=== PATIENT | male | born 1985 | race Two or more races ===

== ENCOUNTER 2016-09-18 05:28 | Day surgery (SDC) | payer OTHER ==
[2016-09-10 10:20] VITALS: BMI 48.0
[2016-09-18] MEDS ORDERED: PROPOFOL 20 ML ONE ×2 (14:18)
[2016-09-18] MEDS ORDERED: ROCURONIUM BROMIDE 50 MG/5 ML VIAL ONE ×2 (14:18→15:39)
[2016-09-18] MEDS ORDERED: MIDAZOLAM HCL 2 MG/2 ML SINGLE DOSE VIAL ONE (14:18)
[2016-09-18] MEDS ORDERED: LIDOCAINE HCL/PF 2% SDV 5ML VIAL ONE (14:21)
--- NOTE | 2016-09-18 14:37 | HP ---
History & Physical Update - History History: No Change - Physical Physical: No Change - Assessment Assessment: No Change - Plan Plan: No Change
[2016-09-18] MEDS ORDERED: ceFAZolin SODIUM 1 GM VIAL ONE (14:50)
[2016-09-18] MEDS ORDERED: DEXAMETHASONE SOD PHOSPHATE 4 MG/1 ML VIAL ONE (14:50)
[2016-09-18] MEDS ORDERED: KETOROLAC TROMETHAMINE 30 MG/1 ML VIAL ONE (14:50)
[2016-09-18] MEDS ORDERED: PHENYLEPHRINE HCL 10 MG/1 ML SINGLE DOSE VIAL ONE (14:52)
[2016-09-18] MEDS ORDERED: ceFAZolin SODIUM 1 GM VIAL IVPB ONE (14:57)
[2016-09-18] MEDS ORDERED: BUPIVACAINE HCL/PF 0.5% (5MG/ML) 10 ML VIAL IJ ONE (15:10)
[2016-09-18] MEDS ORDERED: DESFLURANE GAS 240 ML BOTTLE IH ONE (16:24)
[2016-09-18] MEDS ORDERED: NEOSTIGMINE METHYLSULFATE 0.5 MG/ML - 10 ML MDV ONE (17:03)
[2016-09-18] MEDS ORDERED: GLYCOPYRROLATE 0.2 MG/1 ML VIAL ONE (17:04)
[2016-09-18] MEDS ORDERED: ONDANSETRON 4 MG/2 ML VIAL IVPUSH PRN (17:43)
[2016-09-18] MEDS ORDERED: LACTATED RINGERS SOLUTION 1,000 ML IV SCH (17:45)
--- NOTE | 2016-09-18 17:58 | OP ---
Operative Note - Note: Operative Date: 09/18/16 Pre-Operative Diagnosis: Ventral hernia x2 Operation: Robotic assisted repair ventral hernia x2 with mesh Post-Operative Diagnosis: Same as Pre-op Surgeon: Cameron Muñoz [employer] Supervisor: Vadim Murray Anesthesiologist/BUILDER BEAM: Marina Jama Anesthesia: General Specimens Removed: hernia sac Estimated Blood Loss (mls): 10 Fluid Volume Replaced (mls): 1,200 Operative Report Dictated: Yes
--- NOTE | 2016-09-18 17:58 | SURG ---
Surgery Paper Reel Operator Note Paper Reel Operator: Vadim Murray PA-C Date of Service: 09/18/16 Diagnosis: Ventral hernia Procedure: Robotic repair ventral hernia x2 with mesh I was present for the entirety of the operative procedure. For further detail, please refer to operative report. Visit type - Case Type Case Type: Scheduled Admission - New patient This patient is new to me today: Yes Date on this admission: 09/18/16
--- NOTE | 2016-09-18 18:00 | OP ---
Operative Note - Note: Operative Date: 09/18/16 Pre-Operative Diagnosis: Ventral hernia Operation: Robotic multiple ventral hernia repair with mesh (2) Findings: multiple ventral hernias - umbilical and epigastric Implants: Progrip mesh 10 x15 cm Post-Operative Diagnosis: Other (Multiple ventral hernias) Surgeon: Cameron Muñoz Co[employer] W[employer] Supervisor: Vadim Murray Anesthesiologist/CRUISE GUIDE: Marina Jama Anesthesia: General Specimens Removed: hernia sac Estimated Blood Loss (mls): 10 Operative Report Dictated: Yes
[2016-09-18] MEDS ORDERED: diphenhydrAMINE HCL 25 MG CAPSULE (FP) PO PRN (18:01)
[2016-09-18] MEDS ORDERED: HYDROmorphone HCL CARPU-JECT 2 MG/1 ML DISP.SYRIN IVPB PRN (18:01)
[2016-09-18] MEDS: ACETAMINOPHEN 1000 MG/100 ML VIAL (NON FORMULARY) IVPB PRN ×2 (18:25→18:50)
[2016-09-18] MEDS ORDERED: ACETAMINOPHEN INJECTION 100 ML IVPB ONE (18:45)
[2016-09-18 19:58] VITALS: TEMP 98.3
[2016-09-18] MEDS ORDERED: PATIENT'S OWN MEDICATION (NON-FORMULARY) (Lisinopril/Hydrochlorothiazide [Lisinopril-Hctz PO SCH (22:00)
[2016-09-19 01:56] VITALS: BP 116/77; PULSE 102
[2016-09-19] MEDS ORDERED: LISINOPRIL 20 MG TABLET (FP) PO SCH (10:00)
[2016-09-19] MEDS ORDERED: HYDROCHLOROTHIAZIDE 12.5 MG CAPSULE (FP) PO SCH (10:00)
[2016-09-19] MEDS ORDERED: ENOXAPARIN NA (PORCINE) 40 MG/0.4 ML DISP.SYRIN SQ SCH (10:00)
--- NOTE | 2016-09-19 17:38 | OP ---
DATE OF OPERATION: 09/18/2016 PROCEDURE: Robotic-assisted laparoscopic multiple ventral hernia repair with mesh. PREOPERATIVE DIAGNOSIS: Epigastric ventral hernia. POSTOPERATIVE DIAGNOSIS: Multiple ventral hernias, epigastric umbilical hernias. SURGEON: Cameron Muñoz MD MEDICAL IMAGING SPECIALIST: ESTEFANIA Call ANESTHESIA: General endotracheal. FINDINGS AND PROCEDURE: This is a 31-year-old male with morbid obesity who presents with bulge of the epigastric region about 2 fingerbreadths above the umbilicus. On physical exam, patient has a nonreducible soft tissue bulge, which is about 8 cm in diameter with just mild tenderness on deep palpation. Patient also has a questionable umbilical defect. Patient was advised elective hernia repair, and consent was obtained after discussing the risks, benefits and alternatives of the procedure. Patient was brought to the operating room and placed in supine position. General endotracheal anesthesia was administered. A small roll was placed on the patient's posterior left flank. The abdomen was prepped and draped in the usual sterile fashion. Using 0.5% Marcaine, local anesthesia was administered to the proposed incision site. The peritoneal cavity was then entered using the Veress needle technique and pneumoperitoneum was established. An 8-mm port was inserted at the left subcostal region in the anterior axillary line level. The 3-D 30-degree laparoscope was inserted, and the peritoneal cavity was carefully inspected and was noted to be free of inadvertent injury. Two large hernias were noted. The epigastric one was about 6 cm in its widest diameter, and the umbilical hernia was noted to be about 3 cm in diameter. Two 8-mm ports were inserted at the flank posterior to the anterior axillary line, one at the level of the umbilicus and one at the left lower quadrant. The target organ was set, and the robotic arms were docked. The fenestrated bipolar forceps were inserted at the left lower quadrant port, and the EndoWrist josefina connected to monopolar cautery was inserted at the left upper quadrant port. The undersigned then scrubbed out to commence the console part of the procedure. Using the EndoWrist josefina, the parietal peritoneum was scored about 5 cm away from the hernia defect. About 15 cm of the preperitoneal space was dissected to create the preperitoneal pocket. The 2 hernia sacs of the epigastric/umbilical hernias were taken down sharply using the EndoWrist josefina. A defect was made of the epigastric hernia sac. This dissection was carried to the other side of the midline about 5 cm away from the hernia defects. After this preperitoneal pocket was created, the hernia defects were closed with continuous V-Loc No. 1 nonabsorbable sutures. The epigastric hernia was closed in transverse fashion, and the umbilical hernia was closed in a vertical fashion. A 15 x 10 cm ProGrip mesh was deployed and anchored to the posterior abdominal wall to reinforce the hernia repair. After the deployment was deemed satisfactory, the preperitoneal pocket was then closed with a continuous V-Loc 2-0 absorbable suture. The hernia sac, which was quite redundant was amputated and extracted via the left upper quadrant port. The peritoneal cavity was again carefully inspected and was noted to be free of active bleeding or any inadvertent injury. The pneumoperitoneum was evacuated. The robotic arms were undocked, and the ports were removed. The wounds were closed with subcuticular Biosyn 4-0 sutures for the skin, reinforced with Dermabond. The patient was successfully extubated. Pressure dressing was placed on the hernia repair area to prevent seroma formation and abdominal binder was also applied. Patient was transferred to the post-anesthesia care unit in satisfactory condition. Estimated blood loss was about 10 mL. Wound class clean. The patient received 2 g of Ancef prior to the start of the procedure. Sanaz [id number] MTDD
--- NOTE | 2016-09-21 13:58 | PATH ---
Surgical Pathology Report Patient Name: ROSA SAMUELS [facility]. Rec. #: [id number] /Age/Gender: 1985 (Age: 31) / M Account: [id number] Location: [facility] SURGICAL Taken: 09/18/2016 Received: 09/19/2016 Reported: 09/21/2016 Physicians: Cameron Muñoz M.D. Specimen(s) Received HERNIA SAC Clinical History Ventral hernia Final Diagnosis SOFT TISSUE, ABDOMINAL WALL, EXCISION: HERNIA SAC, AND ATTACHED BENIGN ADIPOSE TISSUE. Electronically Signed Ha Chandra M.D. Gross Description Received in formalin labeled "hernia sac," is a 5.8 x 3.3 x 1.3 cm portion of brown carlos fibromembranous tissue with attached fat, consistent with a hernia sac. Sectioning reveals focally hemorrhagic soft tissue. No masses are identified. Respiratory Supervisor sections are submitted in one cassette. /09/19/201609/19/2016
== END 2016-09-18 21:34 | disposition home or self-care (01) ==
LOC: JASU-SURG 05:28 → J6S 19:45 → JASU-SURG 21:34
PROVIDERS: ATTEND Surgery
PROC: 8E0W4CZ Robotic Assisted Procedure of Trunk Region, Percutaneous Endoscopic Approach (ICD-10-PCS; 2016-09-18)
PROC: 0WUF4JZ Supplement Abdominal Wall with Synthetic Substitute, Percutaneous Endoscopic Approach (ICD-10-PCS; principal; 2016-09-18 12:30)
DX: K43.9 Ventral hernia without obstruction or gangrene (principal)
CPT/HCPCS: 49652; S2900; 88302-TC; 94010; 94760

== ENCOUNTER 2017-07-01 09:21 | Day surgery (SDC) | payer OTHER ==
[2017-07-01 09:39] VITALS: BMI 47.7
[2017-07-01] MEDS ORDERED: HYDROCHLOROTHIAZIDE 25 MG TABLET (FP) PO ONE (10:17)
[2017-07-01] MEDS ORDERED: LISINOPRIL 20 MG TABLET (FP) PO ONE (10:18)
[2017-07-01] MEDS ORDERED: SODIUM CHLORIDE 1,000 ML IV STA (10:21)
[2017-07-01] MEDS ORDERED: SODIUM CHLORIDE 1,000 ML IV SCH (10:30)
[2017-07-01] MEDS ORDERED: LISINOPRIL 20 MG TABLET (FP) ONE (10:35)
[2017-07-01] MEDS ORDERED: HYDROCHLOROTHIAZIDE 25 MG TABLET (FP) ONE (10:35)
--- NOTE | 2017-07-01 10:44 | PDOC ---
History of Present Illness - General Chief Complaint: Pain, Acute Stated Complaint: PCP SENT Time Seen by Provider: 07/01/17 09:54 History Source: Patient - History of Present Illness Initial Comments: 07/01/17 10:42 32< with pmh of HTN presents to the ED with 1.5 week history of left flank pressure. He states that he saw some blood in the urine when the symptoms started. He saw Dr. Allen, his father's urologist on the May and go a CT of his abdomen which showed a 7x6mm calculus in the left UVJ with mild to moderate hydronephrosis. I spoke to Dr. Allen who said the patient will receive lithotripsy + Stent today. Patient denies nausea, vomiting and anorexia. Past History - Past Medical History Allergies/Adverse Reactions: Allergies Allergy/AdvReac Type Severity Reaction Status Date / Time strawberry Allergy Intermediate Hives Verified 07/01/17 09:39 Sulfa (Sulfonamide Allergy Intermediate Rash Verified 07/01/17 09:39 Antibiotics) Home Medications: Ambulatory Orders Lisinopril/Hydrochlorothiazide [Lisinopril-Hctz 20-12.5 mg Tab] 1 each PO HS Anemia: No Asthma: Yes Cancer: No Cardiac Disorders: No CVA: No COPD: No CHF: No Dementia: No Diabetes: No GI Disorders: No Disorders: No HTN: Yes Hypercholesterolemia: No Kidney Stones: Yes Liver Disease: No Seizures: No Thyroid Disease: No - Surgical History Abdominal Surgery: Yes (UMBILICAL HERNIA REPAIR) Orthopedic Surgery: Yes (FOOT SX) - Suicide/Smoking/Psychosocial Hx Smoking History: Never smoked Hx Alcohol Use: No Drug/Substance Use Hx: No Substance Use Type: None Hx Substance Use Treatment: No Review of Systems - Review of Systems Able to Perform ROS?: Yes Constitutional: No: Symptoms Reported HEENTM: No: Symptoms Reported Respiratory: No: Symptoms reported Cardiac (ROS): No: Symptoms Reported ABD/GI: No: Symptoms Reported : Yes: See HPI Musculoskeletal: No: Symptoms Reported Integumentary: No: Symptoms Reported Neurological: No: Symptoms reported *Physical Exam - Vital Signs Last Vital Signs Temp Pulse Resp BP Pulse Ox 98.7 F 102 H 18 176/118 97 07/01/17 09:36 07/01/17 09:36 07/01/17 09:36 07/01/17 09:36 07/01/17 09:36 - Physical Exam General Appearance: Yes: Appropriately Dressed, Obese. No: Apparent Distress HEENT: positive: EOMI, HALI, Normal ENT Inspection Respiratory/Chest: positive: Lungs Clear, Normal Breath Sounds. negative: Chest Tender Cardiovascular: positive: Regular Rhythm, S1, S2, Tachycardia Gastrointestinal/Abdominal: positive: Normal Bowel Sounds, Flat, Soft. negative : Tender Musculoskeletal: negative: CVA Tenderness Extremity: positive: Normal Capillary Refill Integumentary: positive: Normal Color Neurologic: positive: Fully Oriented, Alert, Normal Mood/Affect, Normal Response Medical Decision Making - Medical Decision Making 07/01/17 11:08 Basic presurgery labs ordered, ua, ucx, Iv placement. *DC/Admit/Observation/Transfer Diagnosis at time of Disposition: Left nephrolithiasis - Discharge Dispostion Admit: Yes - Referrals Referrals: Alanna Monroe MD [Primary Care Provider] - - Patient Instructions - Post Discharge Activity
[2017-07-01 11:17] LABS: EOS % 0.3 % (0-4.5); HEMATOCRIT 48.3 % (35.4-49); HEMOGLOBIN 15.9 GM/dL (11.7-16.9); LYMPH % 11.7 % (8-40); MCH 30.6 pg (25.7-33.7); MCHC 32.8 g/dl (32.0-35.9); MEAN CELL VOLUME 93.1 fl (80-96); MEAN PLT VOLUME 8.7 fl (7.5-11.1); PLATELET COUNT 231 K/MM3 (134-434); RBC 5.19 M/mm3 (4.00-5.60); RDW 13.2 % (11.9-15.9); WHITE BLOOD COUNT 15.4 K/mm3 (4.0-10.0)
--- NOTE | 2017-07-01 11:19 | PDOC ---
Attending Attestation - Resident Resident Name: Sarbjit Freedman - ED Attending Attestation I have performed the following: I have examined & evaluated the patient, The case was reviewed & discussed with the resident, I agree w/resident's findings & plan, Exceptions are as noted - HPI HPI: 07/01/17 11:18 " The patient is a 32 year old male, with a significant past medical history of hypertension, who presents to the emergency department with 1.5 weeks of left flank pain, hematuria, and mild discomfort on urination. He states he went to his urologist, Dr. Gonzalez where the patient had a CT positive for a 7.6mm stone in the left ureter. Pt was to have surgical intervention, but due to insurance issues, pt could not have arrange this as outpt. The patient states advised the patient to come to the ED for admission. The patient denies chest pain, shortness of breath, headache and dizziness. The patient denies fever, chills, nausea, vomit, diarrhea and constipation. The patient denies frequency, urgency. Allergies: NKDA Urologist: Dr. Gonzalez ([phone]) " - Physicial Exam PE: 07/01/17 11:19 """GENERAL: Awake, alert, and fully oriented, in no acute distress HEAD: No signs of trauma EYES: PERRLA, EOMI, sclera anicteric, conjunctiva clear ENT: Auricles normal inspection, hearing grossly normal, nares patent, oropharynx clear without exudates. Moist mucosa NECK: Nontender, no stepoffs, Normal ROM, supple, no lymphadenopathy, JVD, or masses LUNGS: Breath sounds equal, clear to auscultation bilaterally. No wheezes, and no crackles HEART: Regular rate and rhythm, normal S1 and S2, no murmurs, rubs or gallops ABDOMEN: Soft, nontender, normoactive bowel sounds. No guarding, no rebound. No masses EXTREMITIES: Normal range of motion, no edema. No clubbing or cyanosis. No cords, erythema, or tenderness NEUROLOGICAL: Cranial nerves II through XII intact. 5/5 strength and sensation in all extremities, Normal speech, normal gait SKIN: Warm, Dry, normal turgor, no rashes or lesions noted. """ - Medical Decision Making 07/01/17 11:19 32 M with L ureteral stone, sent in for admission for procedure, likely stenting. - Labs, UA, UCx - Pain control, IVF - Consult uro - Admit
[2017-07-01 11:20] LABS: URINE APPEARANCE CLEAR; URINE BILIRUBIN NEGATIVE (NEGATIVE); URINE BLOOD NEGATIVE (NEGATIVE); URINE COLOR LTYELLOW; URINE GLUCOSE (UA) NEGATIVE (NEGATIVE); URINE KETONE NEGATIVE (NEGATIVE); URINE NITRITE NEGATIVE (NEGATIVE); URINE PROTEIN NEGATIVE (NEGATIVE); URINE UROBILINOGEN NEGATIVE mg/dL (0.2-1.0)
[2017-07-01 11:27] LABS: URINE LEUK ESTERASE 1+ (NEGATIVE)
[2017-07-01 11:28] LABS: EPI CELLS RARE /HPF (FEW)
[2017-07-01 11:31] LABS: INR 1.23 (0.82-1.09); PROTHROMBIN TIME (PATIENT) 13.9 SEC (9.98-11.88)
[2017-07-01 11:34] LABS: ACTIVATED PTT 32.5 SECONDS (26.9-34.4)
[2017-07-01 11:39] LABS: ALBUMIN 4.3 g/dl (3.4-5.0); ANION GAP 6 (8-16); BLOOD UREA NITROGEN 9 mg/dL (7-18); CHLORIDE 102 mmol/L (98-107); CO2 28 mmol/L (21-32); GLUCOSE,RANDOM 93 mg/dL (74-106); POTASSIUM 3.9 mmol/L (3.5-5.1); SODIUM 136 mmol/L (136-145)
[2017-07-01 11:42] LABS: ALK PHOS 62 U/L (45-117); CREATININE 1.2 mg/dL (0.7-1.3); SGOT/AST 14 U/L (15-37); SGPT/ALT 27 U/L (12-78); TOT PROT 8.2 g/dl (6.4-8.2)
[2017-07-01] MEDS ORDERED: IOHEXOL 300 MG/ML INFUS..BTL IV ONE (13:58)
[2017-07-01] MEDS ORDERED: ACETAMINOPHEN INJECTION 100 ML IVPB ONE (14:50)
[2017-07-01] MEDS ORDERED: ACETAMINOPHEN 1000 MG/100 ML VIAL (NON FORMULARY) IVPB ONE ×3 (15:15→20:00)
--- NOTE | 2017-07-01 16:31 | PN ---
Teaching Attending Note Name of Resident: Malena Hendrickson ATTENDING PHYSICIAN STATEMENT I saw and evaluated the patient. I reviewed the resident's note and discussed the case with the resident. I agree with the resident's findings and plan as documented. SUBJECTIVE: OBJECTIVE: Vital Signs Period Temp Pulse Resp BP Sys/De [place] Cruz Pulse Ox Last 24 Hr 98.7 F-101.1 F 98-120 18-20 89-176/60-118 96-99 Laboratory Tests 07/01/17 07/01/17 07/01/17 11:10 11:10 11:10 WBC 15.4 H RBC 5.19 Hgb 15.9 Hct 48.3 MCV 93.1 MCH 30.6 MCHC 32.8 RDW 13.2 Plt Count 231 MPV 8.7 Neutrophils % 81.0 Lymphocytes % 11.7 Monocytes % 6.0 Eosinophils % 0.3 Basophils % 1.0 PT with INR 13.90 H INR 1.23 H PTT (Actin FS) 32.5 Sodium 136 Potassium 3.9 Chloride 102 Carbon Dioxide 28 Anion Gap 6 L BUN 9 Creatinine 1.2 Creat Clearance w eGFR > 60 Random Glucose 93 Calcium 9.0 Total Bilirubin 1.0 AST 14 L ALT 27 Alkaline Phosphatase 62 Total Protein 8.2 Albumin 4.3 Urine Color Urine Appearance Urine pH Ur Specific [place] Urine Protein Urine Glucose (UA) Urine Ketones Urine Blood Urine Nitrite Urine Bilirubin Urine Urobilinogen Ur Leukocyte Esterase Urine WBC (Auto) Urine RBC (Auto) Ur Epithelial Cells Blood Type Antibody Screen 07/01/17 07/01/17 11:10 11:10 WBC RBC Hgb Hct MCV MCH MCHC RDW Plt Count MPV Neutrophils % Lymphocytes % Monocytes % Eosinophils % Basophils % PT with INR INR PTT (Actin FS) Sodium Potassium Chloride Carbon Dioxide Anion Gap BUN Creatinine Creat Clearance w eGFR Random Glucose Calcium Total Bilirubin AST ALT Alkaline Phosphatase Total Protein Albumin Urine Color Ltyellow Urine Appearance Clear Urine pH 8.0 Ur Specific [place] 1.014 Urine Protein Negative Urine Glucose (UA) Negative Urine Ketones Negative Urine Blood Negative Urine Nitrite Negative Urine Bilirubin Negative Urine Urobilinogen Negative Ur Leukocyte Esterase 1+ H Urine WBC (Auto) 59 Urine RBC (Auto) 3 Ur Epithelial Cells Rare Blood Type A POSITIVE Antibody Screen Negative Home Medications Medication Instructions Recorded Lisinopril/Hydrochlorothiazide 1 each PO HS 09/10/16 [Lisinopril-Hctz 20-12.5 mg Tab] ASSESSMENT AND PLAN:
[2017-07-01] MEDS ORDERED: CEFTRIAXONE 1 G/50 ML PREMIX 50 ML IVPB ONE ×2 (17:30→18:30)
[2017-07-01 18:08] VITALS: BP 109/66; PULSE 88
--- NOTE | 2017-07-01 20:05 | OP ---
DATE OF OPERATION: 07/01/2017 PREOPERATIVE DIAGNOSIS: Left ureteral stone. POSTOPERATIVE DIAGNOSIS: Left ureteral stone. PROCEDURE: Cystoscopy, left retrograde pyelogram, left ureteroscopic laser lithotripsy, left ureteral stone basketing, and left ureteral stent placement. ATTENDING: Krunal Kimbrough MD ANESTHESIA: General. INDICATION FOR PROCEDURE: The patient presented to the emergency room in significant distress. The patient has a history of high-grade hydroureteronephrosis. This hydroureteronephrosis secondary to an 8-mm stone on CAT scan. The patient is taken emergently to the operating room in order to avoid loss of renal function in the left kidney. The patient understands all risks and benefits. DESCRIPTION OF PROCEDURE: The patient was brought in the operating room, placed in supine position on the operating table. General anesthesia and preoperative antibiotics were administered. At this point, the patient was placed in a dorsal lithotomy position. Cystoscopy was performed, and there was no evidence of stone within the bladder. Left ureteral orifice appears to be inflamed and irregular. The right ureteral orifice is normal. A retrograde pyelogram showed evidence of a distal left ureteral stone. There was difficulty in passing the wire proximally into the left kidney. With [id number] difficulty, the left wire was placed. Ureteroscopy was then performed, and an 8+ mm stone was noted at the distal ureter. Laser lithotripsy was performed. A holmium laser was utilized. All stone fragments were basketed. The retrograde pyelogram was remarkable for grade 4/5 hydronephrosis. A 6-Irish 24-cm stent was then placed utilizing the Seldinger technique. No complications were noted. The patient tolerated the procedure very well. KRUNAL KIMBROUGH M.D. [id number]
[2017-07-01 22:03] VITALS: TEMP 98.2
--- NOTE | 2017-07-02 12:55 | DS ---
Physical Exam: SUBJECTIVE: Patient seen and examined. He is complaining of mild discomfort in lower back. OBJECTIVE: Vital Signs Period Temp Pulse Resp BP Sys/De La Cruz Pulse Ox Last 24 Hr 98.2 F-101.1 F 88-120 16-20 89-120/48-91 95-99 PHYSICAL EXAM GENERAL: The patient is awake, alert, and fully oriented, in no acute distress. HEAD: Normal with no signs of trauma. EYES: PERRL, extraocular movements intact, sclera anicteric, conjunctiva clear. ENT: Ears normal, nares patent, oropharynx clear without exudates, moist mucous membranes. NECK: Trachea midline, full range of motion, supple. LUNGS: Breath sounds equal, clear to auscultation bilaterally, no wheezes, no crackles, no accessory muscle use. HEART: Regular rate and rhythm, S1, S2 without murmur, rub or gallop. ABDOMEN: Obese, soft, nontender, nondistended, normoactive bowel sounds, no guarding, no rebound, no hepatosplenomegaly, no masses. EXTREMITIES: 2+ pulses, warm, well-perfused, no edema. NEUROLOGICAL: Cranial nerves II through XII grossly intact. Normal speech, gait not observed. PSYCH: Normal mood, normal affect. SKIN: Warm, dry, normal turgor, no rashes or lesions noted. LABS HOSPITAL COURSE: Date of Admission:07/01/17 Date of Discharge: 07/01/17 Minutes to complete discharge: 30 Discharge Summary Reason For Visit: CALCULUS OF LEFT KIDNEY Hospital Course: The patient is a 32 year old male with a PMH of hypertension, nephrolithiasis presented today referred from Dr RosasWu-[id number] office. He has been complaining of left flank pain for over a week that prompted him to visit his Urologist. He referred him for CT abdomen that visualized 7-6 mm partially obstructing calculus in left UVJ with moderate hydronephrosis (06/17/17). The pain is intermittent, 0-5/10, radiating from left side flank to left side of the abdomen, relieved by drinking lots of fluids. When his symptoms started he noticed hematuria that resolved now. He denies urgency, increased frequency, dysuria. The patient was aware of kidney stones in the past and was followed by his PCP. He didn't take any pain medications at home. The pt denies fever, chills, nausea, vomiting, diarrhea, loss of appetite. Hospital course: The pt was taken to the operating room for cystoscopy/left retrograde pyelogram/left ureteroscopic laser lithotripsy/left ureteral stone basketing/left ureteral stent placement. He had uncomplicated post op course and was discharged home with recommendation to follow up with PCP and Dr. Rosas. Condition: Good - Instructions Diet, Activity, Other Instructions: Increase fluids tylenol/advil/motrin for pain follow-up in one week Referrals: Serg Rosas MD [Staff Physician] - Disposition: HOME - Home Medications Comprehensive Discharge Medication List: Ambulatory Orders Lisinopril/Hydrochlorothiazide [Lisinopril-Hctz 20-12.5 mg Tab] 1 each PO HS Problem List - Problems (1) Left nephrolithiasis Code(s): N20.0 - CALCULUS OF KIDNEY This patient is new to me today: Yes Date on this admission: 07/02/17 Emergency Visit: Yes Care time: The patient presented to the Emergency Department on the above date and was hospitalized for further evaluation of their emergent condition. Critical Care patient: No - Discharge Referral Referred to [facility] No
--- NOTE | 2017-07-03 13:05 | PATH ---
Surgical Pathology Report Patient Name: ROSA SAMUELS [facility]. Rec. #: [id number] /Age/Gender: 1985 (Age: 32) / M Account: [id number] Location: AMBULATORY SURG Taken: 07/01/2017 Received: 07/02/2017 Reported: 07/03/2017 Physicians: Serg Webber M.D. Specimen(s) Received LEFT KIDNEY STONES Clinical History Calculus of left kidney Final Diagnosis STONES, KIDNEY, LEFT, LITHOTRIPSY:RENAL CALCULI. MACROSCOPIC DIAGNOSIS. Electronically Signed Magdalena Moore M.D. Gross Description Received fresh labeled "left kidney stones" are 2 calculi each of which is between 0.2 and 0.4 cm in greatest dimension. The specimen is submitted for chemical analysis. This is for gross dictation only. [facility]/07/02/2017 [facility]/07/02/2017
[2017-07-16 14:14] LABS: CA OXALATE MONOHYDR. 65 % (.); CALCIUM PHOSPHATE 20 % (.); WEIGHT 35.7 mg (.)
== END 2017-07-01 22:03 | disposition home or self-care (01) ==
LOC: JER 09:21 → JASUSAT 11:22 → J8W 18:15 → JASUSAT 22:03
PROVIDERS: ATTEND Internal Medicine
PROC: 0TF78ZZ Fragmentation in Left Ureter, Via Natural or Artificial Opening Endoscopic (ICD-10-PCS; principal; 2017-07-01 13:00)
PROC: 0T778DZ Dilation of Left Ureter with Intraluminal Device, Via Natural or Artificial Opening Endoscopic (ICD-10-PCS; 2017-07-01 13:00)
DX: N20.1 Calculus of ureter (principal)
CPT/HCPCS: 36415; 76000-TC-FY; 80053; 81003; 81015; 82360; 85025; 85610; 85730; 86850; 86900; 86901; 87040; 87077; 87086; 88300-TC; 94760; 99282-25; J0131; J7030

== ENCOUNTER 2017-10-21 10:14 | Day surgery (SDC) | payer OTHER ==
[2017-10-18 13:30] VITALS: BMI 49.2
--- NOTE | 2017-10-21 14:15 | OP ---
Operative Note - Note: Operative Date: 10/21/17 Pre-Operative Diagnosis: Right renal stone disease Operation: Right ESWL Post-Operative Diagnosis: Same as Pre-op Surgeon: Serg Rosas Anesthesia: Fractional
[2017-10-21 14:19] VITALS: TEMP 98.4
[2017-10-21 15:35] VITALS: BP 125/71; PULSE 81
--- NOTE | 2017-10-21 19:47 | OP ---
DATE OF OPERATION: 10/21/2017 PREOPERATIVE DIAGNOSIS: Right renal stone. POSTOPERATIVE DIAGNOSIS: Right renal stone. PROCEDURE: Right extracorporeal shock wave lithotripsy. ATTENDING: Krunal Kimbrough MD ANESTHESIA: Fractional. DESCRIPTION OF OPERATION: Patient brought in the operating room, placed in a supine position on the operating room table. Ultrasonography and fluoroscopy were performed. A 7-mm right upper pole kidney stone was identified under ultrasonography and fluoroscopy. The patient was then given fractional anesthesia and preoperative antibiotics. Extracorporeal shock wave lithotripsy was then performed; 2500 impulses at 18 joules of power were administered to the stone with excellent fragmentation noted under real-time ultrasonography and fluoroscopy. No complications were noted. The disposition of the patient was to the recovery room. KRUNAL KIMBROUGH M.D. [id number]
== END 2017-10-21 15:20 | disposition home or self-care (01) ==
LOC: JASU-SURG 10:14
PROVIDERS: ATTEND Urology
PROC: 0TF3XZZ Fragmentation in Right Kidney Pelvis, External Approach (ICD-10-PCS; principal; 2017-10-21 12:30)
DX: N20.0 Calculus of kidney (principal)
CPT/HCPCS: 94760

== ENCOUNTER 2018-05-06 16:21 | Emergency (ER) | payer OTHER ==
[2018-05-06 16:37] VITALS: BP 170/85; PULSE 104; TEMP 98; BMI 52.2
--- NOTE | 2018-05-06 16:39 | PDOC ---
Rapid Medical Evaluation Chief Complaint: Bite Medical Evaluation: Allergies Allergy/AdvReac Type Severity Reaction Status Date / Time strawberry Allergy Intermediate Hives Verified 05/06/18 16:35 Sulfa (Sulfonamide Allergy Intermediate Rash Verified 05/06/18 16:35 Antibiotics) 05/06/18 16:37 I have performed a brief in-person evaluation of this patient. The patient presents with a chief complaint of:dog bite to left thigh=- unknown dog, Pertinent physical exam findings: 2 cm open wound to distal left thigh. I have ordered the following: nothing The patient will proceed to the ED for further evaluation. Discharge Disposition - Referrals Referrals: Alanna Monroe MD [Primary Care Provider] - - Patient Instructions - Post Discharge Activity
--- NOTE | 2018-05-06 17:27 | PDOC ---
History of Present Illness - General Chief Complaint: Bite Stated Complaint: BITE Time Seen by Provider: 05/06/18 16:39 History Source: Patient Exam Limitations: No Limitations - History of Present Illness Initial Comments: 05/06/18 20:02 Patient is a 33-year-old male who presents to the emergency department for an dog bite to his left upper leg. Patient states he was walking home from the dentist office when a dog running by him in the opposite direction with his own or bit his leg. He did not notice that he had been bitten until he got home. He does not remember if there was a hole through his jeans. Denies fevers, chills, numbness and tingling to the extremity, weakness to the extremity. He does not know the operations research scientist of the dog or the dog that bit him. He is unsure how to get in contact with the owners as the dog was just passing by. Past History - Travel Traveled outside of the country in the last 30 days: No Close contact w/someone who was outside of country & ill: No - Past Medical History Allergies/Adverse Reactions: Allergies Allergy/AdvReac Type Severity Reaction Status Date / Time strawberry Allergy Intermediate Hives Verified 05/06/18 16:35 Sulfa (Sulfonamide Allergy Intermediate Rash Verified 05/06/18 16:35 Antibiotics) Home Medications: Ambulatory Orders Lisinopril/Hydrochlorothiazide [Lisinopril-Hctz 20-12.5 mg Tab] 1 each PO HS Loratadine [Claritin] 10 mg PO DAILY 10/18/17 Amox-Tr/K Cl [Augmentin - 875Mg Tablet] 1 tab PO BID #14 tablet 05/06/18 Anemia: No Asthma: Yes (allergic) Cancer: No Cardiac Disorders: No CVA: No COPD: No CHF: No Dementia: No Diabetes: No GI Disorders: No Disorders: No HTN: Yes Hypercholesterolemia: No Kidney Stones: Yes Liver Disease: No Seizures: No Thyroid Disease: No - Surgical History Abdominal Surgery: Yes (UMBILICAL HERNIA REPAIR) Orthopedic Surgery: Yes (FOOT SX) - Immunization History Immunization Up to Date: Yes - Suicide/Smoking/Psychosocial Hx Smoking History: Never smoked Hx Alcohol Use: Yes (rarely) Drug/Substance Use Hx: No Substance Use Type: None Hx Substance Use Treatment: No Review of Systems - Review of Systems Able to Perform ROS?: Yes Is the patient limited Chilean proficient: No Constitutional: No: Chills, Fever, Weakness Integumentary: Yes: Bruising, Erythema, Other (dog bite to L upper leg) Neurological: No: Numbness, Tingling, Weakness All Other Systems: Reviewed and Negative *Physical Exam - Vital Signs Last Vital Signs Temp Pulse Resp BP Pulse Ox 98.0 F 104 H 18 170/85 97 05/06/18 16:35 05/06/18 16:35 05/06/18 16:35 05/06/18 16:35 05/06/18 16:35 - Physical Exam General Appearance: Yes: Nourished, Appropriately Dressed. No: Apparent Distress Integumentary: positive: Dry, Warm, Erythema, Bruising, Other (abrasion to the L upper thigh measuring approximately 1 cm) Moderate Sedation - Procedure Monitoring Vital Signs: Procedure Monitoring Vital Signs Temperature 98.0 F 05/06/18 16:35 Pulse Rate 104 H 05/06/18 16:35 Respiratory Rate 18 05/06/18 16:35 Blood Pressure 170/85 05/06/18 16:35 O2 Sat by Pulse Oximetry (%) 97 05/06/18 16:35 Medical Decision Making - Medical Decision Making 05/06/18 20:04 Patient is a 33-year-old male who presents to the emergency department for dog bite to his left upper leg which occurred this morning while walking home from the dentist. -The dog was apparently a pet however the patient has no relation to the dog and is unable to track it. -On exam patient with an abrasion measuring 1 cm to the left upper leg. No active bleeding. -Patient reports his tetanus is up-to-date. -Explained to patient that the wound does not appear to be a clear-cut bite, that he could wait for rabies vaccinations. Patient states that he would prefer to receive rabies vaccinations at this time as he is very nervous that he will not be able to find the dog. -Rabies vaccine administered today. -Given patient's weight, there was not enough immunoglobulin in stock in the hospital. Spoke with Dr. Almeida at the health [facility]. She states that you can wait up to 10 days to administer the immunoglobulin. Informed patient to return on the for his next rabies vaccination and immunoglobulin. -Spoke with pharmacy they state they will have the immunoglobulin by Saturday. -Wound was cleaned with copious amounts of normal saline. -Patient placed on Augmentin to prevent infection. -Discharge home -I discussed the physical exam findings, ancillary test results and final diagnoses with the patient. I answered all of the patient's questions. The patient was satisfied with the care received and felt comfortable with the discharge plan and treatment plan. The Patient agrees to follow up with the primary care physician/specialist within 24-72 hours. Return precautions were given. *DC/Admit/Observation/Transfer Diagnosis at time of Disposition: Dog bite Qualifiers: Encounter type: initial encounter Qualified Code(s): W54.0XXA - Bitten by dog, initial encounter - Discharge Dispostion Disposition: HOME Condition at time of disposition: Stable Decision to Admit order: No - Prescriptions Prescriptions: Amox-Tr/K Cl [Augmentin - 875Mg Tablet] 1 tab PO BID #14 tablet - Referrals Referrals: Alanna Monroe MD [Primary Care Provider] - - Patient Instructions Printed Discharge Instructions: DI for Animal Bites Additional Instructions: You were bit by a dog Please follow the rabies vaccination schedule as written in the discharge instructions Please return tomorrow for the immunoglobulin Keep the area clean and dry You may put a thin layer of bacitracin once a day Return to the ED sooner if you see signs of infection including fevers, redness around the site, or purulent drainage. - Post Discharge Activity Forms/Work/School Notes: Rabies Vaccination F/U Veto.
[2018-05-06] MEDS ORDERED: RABIES VACCINE (PCEC)/PF 2.5 UNIT/VIAL IM ONE ×2 (17:28→17:32)
[2018-05-06] MEDS ORDERED: RABIES IMMUNE GLOBULIN 300 UNITS/1 ML VIAL IM ONE (17:28)
[2018-05-06] MEDS ORDERED: DIPHTH,PERTUSS(ACELL),TET 0.5 ML DISP.SYRIN IM ONE (17:43)
== END 2018-05-06 19:42 | disposition home or self-care (01) ==
LOC: JERFT 16:21
PROC: 3E0234Z Introduction of Serum, Toxoid and Vaccine into Muscle, Percutaneous Approach (ICD-10-PCS; principal; 2018-05-06)
DX: S71.152A Open bite, left thigh, initial encounter (principal); W54.0XXA Bitten by dog, initial encounter; Y93.01 Activity, walking, marching and hiking; Y92.480 Sidewalk as the place of occurrence of the external cause; Y99.8 Other external cause status
CPT/HCPCS: 90675; 99281-25

== ENCOUNTER 2018-05-09 12:08 | Emergency (ER) | payer OTHER ==
[2018-05-09 12:18] VITALS: BP 150/80; PULSE 90; TEMP 98.7; BMI 52.2
[2018-05-09] MEDS ORDERED: RABIES IMMUNE GLOBULIN 300 UNITS/1 ML VIAL IM ONE (13:04)
[2018-05-09] MEDS ORDERED: RABIES VACCINE (PCEC)/PF 2.5 UNIT/VIAL IM ONE ×2 (13:04→14:21)
--- NOTE | 2018-05-09 13:06 | PDOC ---
History of Present Illness - General Chief Complaint: Revisit,Rabies Injection Stated Complaint: REVISIT, BITE Time Seen by Provider: 05/09/18 12:30 History Source: Patient Exam Limitations: No Limitations - History of Present Illness Timing/Duration: 24 hours, other (patient came to ER 3 days ago after exposure to an unknown dog that was being walked by director agency [employer] strategic partnerships on a leash. States walk by the dog which jumped out and nipped him in the left lower thigh. States had skin broken and he bled at the time. Came here that day for evaluation and treatment. However our hospital did not have enough of immunoglobulin to provide him with immunity at that time and requested him to return today for proper prophylaxis. Patient denies pain, swelling her any other problems.) Severity: mild Past History - Travel Traveled outside of the country in the last 30 days: No Close contact w/someone who was outside of country & ill: No - Past Medical History Allergies/Adverse Reactions: Allergies Allergy/AdvReac Type Severity Reaction Status Date / Time strawberry Allergy Intermediate Hives Verified 05/06/18 16:35 Sulfa (Sulfonamide Allergy Intermediate Rash Verified 05/06/18 16:35 Antibiotics) Home Medications: Ambulatory Orders Lisinopril/Hydrochlorothiazide [Lisinopril-Hctz 20-12.5 mg Tab] 1 each PO HS Loratadine [Claritin] 10 mg PO DAILY 10/18/17 Amox-Tr/K Cl [Augmentin - 875Mg Tablet] 1 tab PO BID #14 tablet 05/06/18 Anemia: No Asthma: Yes (allergic) Cancer: No Cardiac Disorders: No CVA: No COPD: No CHF: No Dementia: No Diabetes: No GI Disorders: No Disorders: No HTN: Yes Hypercholesterolemia: No Kidney Stones: Yes Liver Disease: No Seizures: No Thyroid Disease: No - Surgical History Abdominal Surgery: Yes (UMBILICAL HERNIA REPAIR) Orthopedic Surgery: Yes (FOOT SX) - Immunization History Immunization Up to Date: Yes - Suicide/Smoking/Psychosocial Hx Smoking History: Never smoked Information on smoking cessation initiated: No Hx Alcohol Use: No Drug/Substance Use Hx: No Substance Use Type: None Hx Substance Use Treatment: No Review of Systems - Review of Systems Able to Perform ROS?: Yes Is the patient limited Latvian proficient: Yes Constitutional: Yes: See HPI. No: Symptoms Reported, Fever, Malaise HEENTM: Yes: See HPI. No: Symptoms Reported Respiratory: Yes: Symptoms reported Musculoskeletal: Yes: Symptoms Reported, Muscle Pain Integumentary: Yes: See HPI. No: Symptoms Reported All Other Systems: Reviewed and Negative *Physical Exam - Vital Signs Last Vital Signs Temp Pulse Resp BP Pulse Ox 98.7 F 90 20 150/80 99 05/09/18 12:15 05/09/18 12:15 05/09/18 12:15 05/09/18 12:15 05/09/18 12:15 - Physical Exam General Appearance: Yes: Nourished, Appropriately Dressed. No: Apparent Distress, Mild Distress HEENT: positive: HALI, TMs Normal, Pharynx Normal Neck: positive: Supple. negative: Tender Musculoskeletal: positive: Other. negative: Normal Inspection Extremity: positive: Normal Capillary Refill Integumentary: positive: Normal Color, Other (well-healed abrasion/dog bite to left distal thigh above patella. Has full range of motion leg, is mildly tender at site but no erythema, purulent drainage, or fluctuance.) Neurologic: positive: application support administrator II-XII NML intact, Fully Oriented, Alert, Normal Mood/ Affect, Normal Response, Motor Strength 5/5 Moderate Sedation - Procedure Monitoring Vital Signs: Procedure Monitoring Vital Signs Temperature 98.7 F 05/09/18 12:15 Pulse Rate 90 05/09/18 12:15 Respiratory Rate 20 05/09/18 12:15 Blood Pressure 150/80 05/09/18 12:15 O2 Sat by Pulse Oximetry (%) 99 05/09/18 12:15 Medical Decision Making - Medical Decision Making 05/09/18 14:48 given for4.9 cc of immunoglobulin infiltrating wound to left thigh, and remaining 4.9 mL given IM. Reaction after 30 minutes. Patient understands new regime as needed vaccine with immunoglobulin therefore today's date will start a 0 and will return in 3, 7, 14 days from now. *DC/Admit/Observation/Transfer Diagnosis at time of Disposition: Rabies, need for prophylactic vaccination against - Discharge Dispostion Disposition: HOME Condition at time of disposition: Stable Decision to Admit order: No - Referrals - Patient Instructions Printed Discharge Instructions: DI for Rabies Vaccine Additional Instructions: Return May 12, for 2nd Vaccine - Post Discharge Activity
== END 2018-05-09 14:49 | disposition home or self-care (01) ==
LOC: JERFT 12:08
PROC: 3E0234Z Introduction of Serum, Toxoid and Vaccine into Muscle, Percutaneous Approach (ICD-10-PCS; principal; 2018-05-09)
PROC: 3E0234Z Introduction of Serum, Toxoid and Vaccine into Muscle, Percutaneous Approach (ICD-10-PCS; 2018-05-09)
DX: Z20.3 Contact with and (suspected) exposure to rabies (principal)
CPT/HCPCS: 90375; 90675; 99281-25

== ENCOUNTER 2018-05-12 10:04 | Emergency (ER) | payer OTHER ==
[2018-05-12 10:10] VITALS: BP 115/76; PULSE 96; TEMP 98.1; BMI 51.6
[2018-05-12] MEDS ORDERED: RABIES VACCINE (PCEC)/PF 2.5 UNIT/VIAL IM ONE (10:15)
--- NOTE | 2018-05-12 10:52 | PDOC ---
History of Present Illness - General Chief Complaint: Revisit,Rabies Injection Stated Complaint: REVISIT, RABIES VACCINATION Time Seen by Provider: 05/12/18 10:24 History Source: Patient Exam Limitations: No Limitations (Pt is here for 2nd Rabies vaccine, no compliants) Past History - Travel Traveled outside of the country in the last 30 days: No Close contact w/someone who was outside of country & ill: No - Past Medical History Allergies/Adverse Reactions: Allergies Allergy/AdvReac Type Severity Reaction Status Date / Time strawberry Allergy Intermediate Hives Verified 05/06/18 16:35 Sulfa (Sulfonamide Allergy Intermediate Rash Verified 05/06/18 16:35 Antibiotics) Home Medications: Ambulatory Orders Lisinopril/Hydrochlorothiazide [Lisinopril-Hctz 20-12.5 mg Tab] 1 each PO HS Loratadine [Claritin] 10 mg PO DAILY 10/18/17 Amox-Tr/K Cl [Augmentin - 875Mg Tablet] 1 tab PO BID #14 tablet 05/06/18 Anemia: No Asthma: Yes (allergic) Cancer: No Cardiac Disorders: No CVA: No COPD: No CHF: No Dementia: No Diabetes: No GI Disorders: No Disorders: No HTN: Yes Hypercholesterolemia: No Kidney Stones: Yes Liver Disease: No Seizures: No Thyroid Disease: No - Surgical History Abdominal Surgery: Yes (UMBILICAL HERNIA REPAIR) Orthopedic Surgery: Yes (FOOT SX) - Immunization History Immunization Up to Date: Yes - Suicide/Smoking/Psychosocial Hx Smoking History: Never smoked Have you smoked in the past 12 months: No Information on smoking cessation initiated: No Hx Alcohol Use: No Drug/Substance Use Hx: No Substance Use Type: None Hx Substance Use Treatment: No Review of Systems - Review of Systems Is the patient limited Mozambican proficient: No Constitutional: No: Chills, Fever Integumentary: No: Erythema, Rash *Physical Exam - Vital Signs Last Vital Signs Temp Pulse Resp BP Pulse Ox 98.1 F 96 H 20 115/76 100 05/12/18 10:07 05/12/18 10:07 05/12/18 10:07 05/12/18 10:07 05/12/18 10:07 Moderate Sedation - Procedure Monitoring Vital Signs: Procedure Monitoring Vital Signs Temperature 98.1 F 05/12/18 10:07 Pulse Rate 96 H 05/12/18 10:07 Respiratory Rate 20 05/12/18 10:07 Blood Pressure 115/76 05/12/18 10:07 O2 Sat by Pulse Oximetry (%) 100 05/12/18 10:07 Medical Decision Making - Medical Decision Making 05/12/18 10:45 33 years old male status post ER visit on the for dog bite patient was given rabies vaccines he presents here for his scheduled injection today. Patient denies any complaining he is currently still taking his antibiotic aspirin previously prescribed. *DC/Admit/Observation/Transfer Diagnosis at time of Disposition: Rabies, need for prophylactic vaccination against - Discharge Dispostion Disposition: HOME Decision to Admit order: No - Referrals Referrals: Alanna Monroe MD [Primary Care Provider] - - Patient Instructions Additional Instructions: Return on Saturday the for the 3rd Rabies Vaccines. Continue antibiotics as prescribed - Post Discharge Activity Forms/Work/School Notes: Rabies Vaccination F/U Veto.
== END 2018-05-12 12:06 | disposition home or self-care (01) ==
LOC: JERFT 10:04
DX: Z20.3 Contact with and (suspected) exposure to rabies (principal); W54.0XXD Bitten by dog, subsequent encounter
CPT/HCPCS: 99281-25

== ENCOUNTER 2018-05-16 10:31 | Emergency (ER) | payer OTHER ==
[2018-05-16 10:46] VITALS: BP 155/75; PULSE 93; TEMP 98.1; BMI 51.6
[2018-05-16] MEDS ORDERED: RABIES VACCINE (PCEC)/PF 2.5 UNIT/VIAL IM ONE ×2 (10:48→10:50)
--- NOTE | 2018-05-16 10:52 | PDOC ---
History of Present Illness - General Chief Complaint: Revisit,Rabies Injection Stated Complaint: REVISIT, RABIES INJECTION History Source: Patient Exam Limitations: No Limitations - History of Present Illness Initial Comments: 05/16/18 10:48 33-year-old male presents to the ER on his fourth visit for his rabies vaccination. Patient was initially seen on May 06 for dog bite and was started on rabies vaccination. Patient is here for his fourth vaccination. He she denies any complaints on his previous injections. Patient states he has completed his prescribed antibiotics. Patient denies fever, chills. Patient has no medical complaints. Patient was not provided rabies immunoglobulin. Therefore, patient will return on May 23 for his final vaccination/rabies. Past History - Past Medical History Allergies/Adverse Reactions: Allergies Allergy/AdvReac Type Severity Reaction Status Date / Time strawberry Allergy Intermediate Hives Verified 05/16/18 10:43 Sulfa (Sulfonamide Allergy Intermediate Rash Verified 05/16/18 10:43 Antibiotics) Home Medications: Ambulatory Orders Lisinopril/Hydrochlorothiazide [Lisinopril-Hctz 20-12.5 mg Tab] 1 each PO HS Loratadine [Claritin] 10 mg PO DAILY 10/18/17 Anemia: No Asthma: Yes (allergic) Cancer: No Cardiac Disorders: No CVA: No COPD: No CHF: No Dementia: No Diabetes: No GI Disorders: No Disorders: No HTN: Yes Hypercholesterolemia: No Kidney Stones: Yes Liver Disease: No Seizures: No Thyroid Disease: No - Surgical History Abdominal Surgery: Yes (UMBILICAL HERNIA REPAIR) Orthopedic Surgery: Yes (FOOT SX) - Immunization History Immunization Up to Date: Yes - Suicide/Smoking/Psychosocial Hx Smoking History: Never smoked Have you smoked in the past 12 months: No Hx Alcohol Use: No Drug/Substance Use Hx: No Substance Use Type: None Hx Substance Use Treatment: No Review of Systems - Review of Systems Able to Perform ROS?: Yes Comments:: 05/16/18 10:49 CONSTITUTIONAL: Absent: fever, chills, diaphoresis, generalized weakness, malaise, loss of appetite HEENT: Absent: rhinorrhea, nasal congestion, throat pain, throat swelling, difficulty swallowing, mouth swelling, ear pain, eye pain, visual Changes CARDIOVASCULAR: Absent: chest pain, loss of consciousness, palpitations, irregular heart rate, peripheral edema RESPIRATORY: Absent: cough, shortness of breath, dyspnea with exertion, orthopnea, wheezing, stridor, hemoptysis SKIN: Absent: rash, itching, pallor HEMATOLOGIC/IMMUNOLOGIC: Absent: easy bleeding, easy bruising, lymphadenopathy, frequent infections ENDOCRINE: Absent: unexplained weight gain, unexplained weight loss, heat intolerance, cold intolerance Is the patient limited Yoruba proficient: No *Physical Exam - Vital Signs Last Vital Signs Temp Pulse Resp BP Pulse Ox 98.1 F 93 H 20 155/75 99 05/16/18 10:44 05/16/18 10:44 05/16/18 10:44 05/16/18 10:44 05/16/18 10:44 - Physical Exam Comments: 05/16/18 10:51 GENERAL: Well developed, well nourished. Awake and alert. No acute distress. SKIN: Warm and dry. Normal capillary refill. No rashes. No jaundice. Moderate Sedation - Procedure Monitoring Vital Signs: Procedure Monitoring Vital Signs Temperature 98.1 F 05/16/18 10:44 Pulse Rate 93 H 05/16/18 10:44 Respiratory Rate 20 05/16/18 10:44 Blood Pressure 155/75 05/16/18 10:44 O2 Sat by Pulse Oximetry (%) 99 05/16/18 10:44 *DC/Admit/Observation/Transfer Diagnosis at time of Disposition: Need for rabies vaccination - Discharge Dispostion Disposition: HOME Condition at time of disposition: Stable Decision to Admit order: No - Referrals Referrals: Alanna Monroe MD [Primary Care Provider] - - Patient Instructions Printed Discharge Instructions: DI for Rabies Vaccine Additional Instructions: Please return for you final rabies vaccination on May 23. Return to the ER for any reactions to the injection site: Redness, swelling, severe pain or drainage, fever or chills or any concerns. - Post Discharge Activity
== END 2018-05-16 11:01 | disposition home or self-care (01) ==
LOC: JERFT 10:31
PROC: 3E0234Z Introduction of Serum, Toxoid and Vaccine into Muscle, Percutaneous Approach (ICD-10-PCS; principal; 2018-05-16)
DX: Z20.3 Contact with and (suspected) exposure to rabies (principal); W54.0XXD Bitten by dog, subsequent encounter
CPT/HCPCS: 90675; 99281-25

== ENCOUNTER 2018-05-23 10:49 | Emergency (ER) | payer OTHER ==
[2018-05-23 11:19] VITALS: BP 139/84; PULSE 102; TEMP 99.1; BMI 51.6
--- NOTE | 2018-05-23 11:30 | PDOC ---
History of Present Illness - General Chief Complaint: Revisit,Rabies Injection Stated Complaint: REVISIT, RABIES INJECTION Time Seen by Provider: 05/23/18 11:22 History Source: Patient - History of Present Illness Initial Comments: 05/23/18 12:33 33 year old male s/p dog bite here for day #14 of rabies vaccines. At the bite site patient reports some pain and hard nodule at the site. denies fever/ chills. denies fever chills Patient Past History - Past Medical History Allergies/Adverse Reactions: Allergies Allergy/AdvReac Type Severity Reaction Status Date / Time strawberry Allergy Intermediate Hives Verified 05/23/18 11:16 Sulfa (Sulfonamide Allergy Intermediate Rash Verified 05/23/18 11:16 Antibiotics) Home Medications: Ambulatory Orders Lisinopril/Hydrochlorothiazide [Lisinopril-Hctz 20-12.5 mg Tab] 1 each PO HS Loratadine [Claritin] 10 mg PO DAILY 10/18/17 Albuterol Sulfate Inhaler - [Ventolin HFA Inhaler -] 1 - 2 inh PO Q4H PRN #1 inhaler 05/23/18 Amoxicillin/Potassium Clav [Augmentin 875-125 Tablet] 1 each PO BID #20 tablet 05/23/18 Anemia: No Asthma: Yes (allergic) Cancer: No Cardiac Disorders: No CVA: No COPD: No CHF: No Dementia: No Diabetes: No GI Disorders: No Disorders: No HTN: Yes Hypercholesterolemia: No Kidney Stones: Yes Liver Disease: No Seizures: No Thyroid Disease: No - Surgical History Abdominal Surgery: Yes (UMBILICAL HERNIA REPAIR) Orthopedic Surgery: Yes (FOOT SX) - Immunization History Immunization Up to Date: Yes - Suicide/Smoking/Psychosocial Hx Smoking History: Never smoked Have you smoked in the past 12 months: No Hx Alcohol Use: No Drug/Substance Use Hx: No Substance Use Type: None Hx Substance Use Treatment: No *Physical Exam - Vital Signs Last Vital Signs Temp Pulse Resp BP Pulse Ox 99.1 F 102 H 19 139/84 97 05/23/18 11:16 05/23/18 11:16 05/23/18 11:16 05/23/18 11:16 05/23/18 11:16 - Physical Exam General Appearance: Yes: Appropriately Dressed Respiratory/Chest: positive: Lungs Clear, Normal Breath Sounds. negative: Chest Tender Cardiovascular: positive: Regular Rhythm, Regular Rate Gastrointestinal/Abdominal: positive: Normal Bowel Sounds, Soft. negative: Tender Musculoskeletal: positive: Other (left thigh proximal to knee nonfluctuant mass , slight warm to touch) Extremity: positive: Normal Capillary Refill, Normal Inspection, Normal Range of Motion Integumentary: positive: Warm, Other (dog bite site well healed) Neurologic: positive: Fully Oriented, Alert, Normal Mood/Affect Moderate Sedation - Procedure Monitoring Vital Signs: Procedure Monitoring Vital Signs Temperature 99.1 F 05/23/18 11:16 Pulse Rate 102 H 05/23/18 11:16 Respiratory Rate 05/23/18 11:16 Blood Pressure 139/84 05/23/18 11:16 O2 Sat by Pulse Oximetry (%) 97 05/23/18 11:16 Medical Decision Making - Medical Decision Making 05/23/18 12:37 patient reports that he has been coughing and ran out of the pump. not in any distress will give albuterol pump. patient to follow up with pcp *DC/Admit/Observation/Transfer Diagnosis at time of Disposition: Rabies, need for prophylactic vaccination against Dog bite Qualifiers: Encounter type: subsequent encounter Qualified Code(s): W54.0XXD - Bitten by dog, subsequent encounter - Discharge Dispostion Disposition: HOME - Prescriptions Prescriptions: Albuterol Sulfate Inhaler - [Ventolin HFA Inhaler -] 1 - 2 inh PO Q4H PRN #1 inhaler PRN Reason: Asthma Amoxicillin/Potassium Clav [Augmentin 875-125 Tablet] 1 each PO BID #20 tablet - Referrals Referrals: Alanna Monroe MD [Primary Care Provider] - 24 hours - Patient Instructions Printed Discharge Instructions: DI for Animal Bites Additional Instructions: warm compress to the area. take Augmentin as prescribed follow up with your pcp as soon as possible. - Post Discharge Activity Forms/Work/School Notes: Back to Work
[2018-05-23] MEDS ORDERED: RABIES VACCINE (PCEC)/PF 2.5 UNIT/VIAL IM ONE ×2 (11:43→11:48)
== END 2018-05-23 12:42 | disposition home or self-care (01) ==
LOC: JERFT 10:49
PROC: 3E0234Z Introduction of Serum, Toxoid and Vaccine into Muscle, Percutaneous Approach (ICD-10-PCS; principal; 2018-05-23)
DX: Z20.3 Contact with and (suspected) exposure to rabies (principal); W54.0XXD Bitten by dog, subsequent encounter
CPT/HCPCS: 90471; 90675; 99281-25

== ENCOUNTER 2018-06-24 14:01 | Emergency (ER) | payer OTHER ==
--- NOTE | 2018-06-24 14:08 | PDOC ---
Rapid Medical Evaluation Time Seen by Provider: 06/24/18 14:05 Medical Evaluation: Allergies Allergy/AdvReac Type Severity Reaction Status Date / Time strawberry Allergy Intermediate Hives Verified 05/23/18 11:16 Sulfa (Sulfonamide Allergy Intermediate Rash Verified 05/23/18 11:16 Antibiotics) 06/24/18 14:06 Pt presents for a bump to his L knee. Pt reports he has had the bump after sustaining a dog bite. Was given abx for the nodule back in the beginning of May. Returns for re-check and that he still has the bump Exam: NAD, ambulatory Orders: Nothing Pt to proceed to ED for further evaluation Discharge Disposition - Diagnosis Left knee pain - Referrals - Patient Instructions - Post Discharge Activity
[2018-06-24 14:09] VITALS: BP 143/91; PULSE 97; TEMP 99.3; BMI 51.3
--- NOTE | 2018-06-24 14:51 | PDOC ---
History of Present Illness - General Chief Complaint: Chronic pain Stated Complaint: L KNEE INJURY Time Seen by Provider: 06/24/18 14:05 - History of Present Illness Initial Comments: 06/24/18 14:48 33-year-old male presents for a nonpainful lump on his left knee. He states he received a dog bite as well as rabies inoculations a few months ago and since that time he developed a lump under the area of the bite. Over time the area has been getting smaller. Past History - Past Medical History Allergies/Adverse Reactions: Allergies Allergy/AdvReac Type Severity Reaction Status Date / Time strawberry Allergy Intermediate Hives Verified 06/24/18 14:07 Sulfa (Sulfonamide Allergy Intermediate Rash Verified 06/24/18 14:07 Antibiotics) Home Medications: Ambulatory Orders Lisinopril/Hydrochlorothiazide [Lisinopril-Hctz 20-12.5 mg Tab] 1 each PO HS Albuterol Sulfate Inhaler - [Ventolin HFA Inhaler -] 1 - 2 inh PO Q4H PRN #1 inhaler 05/23/18 Anemia: No Asthma: Yes (allergic) Cancer: No Cardiac Disorders: No CVA: No COPD: No CHF: No Dementia: No Diabetes: No GI Disorders: No Disorders: No HTN: Yes Hypercholesterolemia: No Kidney Stones: Yes Liver Disease: No Seizures: No Thyroid Disease: No - Surgical History Abdominal Surgery: Yes (UMBILICAL HERNIA REPAIR) Orthopedic Surgery: Yes (FOOT SX) - Immunization History Immunization Up to Date: Yes - Suicide/Smoking/Psychosocial Hx Smoking History: Never smoked Have you smoked in the past 12 months: No Hx Alcohol Use: No Drug/Substance Use Hx: No Substance Use Type: None Hx Substance Use Treatment: No Review of Systems - Review of Systems Musculoskeletal: Yes: See HPI *Physical Exam - Vital Signs Last Vital Signs Temp Pulse Resp BP Pulse Ox 99.3 F 97 H 16 143/91 99 06/24/18 14:07 06/24/18 14:07 06/24/18 14:07 06/24/18 14:07 06/24/18 14:07 - Physical Exam Comments: 06/24/18 14:49 Left knee skin color and temperature are normal for range of motion is full there is a nontender firm mass on the superior medial aspect over the skin overlying the patella in the area of the wound. The wound is well scarred mass is nontender and firm. There is no fluctuance induration or erythema overlying the mass. Thighs and calves are soft and nontender he has no gross sensorimotor deficits. He is neurovascularly intact. Moderate Sedation - Procedure Monitoring Vital Signs: Procedure Monitoring Vital Signs Temperature 99.3 F 06/24/18 14:07 Pulse Rate 97 H 06/24/18 14:07 Respiratory Rate 16 06/24/18 14:07 Blood Pressure 143/91 06/24/18 14:07 O2 Sat by Pulse Oximetry (%) 99 06/24/18 14:07 Medical Decision Making - Medical Decision Making 06/24/18 14:50 This is most likely resolving scar tissue from a dog bite. I will have him follow-up with orthopedic surgery for further evaluation and treatment options. *DC/Admit/Observation/Transfer Diagnosis at time of Disposition: Bitten by dog, sequela Diagnosis at time of Disposition: (Ruled Out): Left knee pain - Discharge Dispostion Disposition: HOME Condition at time of disposition: Stable Decision to Admit order: No - Referrals Referrals: Alanna Monroe MD [Primary Care Provider] - Willie Solis MD [Staff Physician] - - Patient Instructions Additional Instructions: Follow-up with orthopedic surgery in 1-2 days. Return to the emergency room should symptoms worsen or go unresolved. May take Tylenol and Motrin as directed for any discomfort in the area. - Post Discharge Activity
== END 2018-06-24 14:52 | disposition home or self-care (01) ==
LOC: JERFT 14:01
DX: M25.562 Pain in left knee (principal); L90.5 Scar conditions and fibrosis of skin; S81.05 Open bite of knee; W54.0XXS Bitten by dog, sequela
CPT/HCPCS: 99281-25